=== PATIENT | female | born 1960 | race Asian ===

== ENCOUNTER 2020-09-18 20:41 | Emergency (ER) | payer BC ==
[~2020-09-18] VITALS: Ht 157.5 cm; Wt 59.9 kg
[2020-09-18 20:52] VITALS: Ht 157.5 cm; Wt 59.9 kg
[2020-09-18 22:55] VITALS: BP 127/70
== END 2020-09-18 23:59 | disposition home or self-care (01) ==
LOC: ED 20:41
DX: S06.0X0A Concussion without loss of consciousness, initial encounter (principal); S16.1XXA Strain of muscle, fascia and tendon at neck level, initial encounter; W01.0XXA Fall on same level from slipping, tripping and stumbling without subsequent striking against object, initial encounter; Y93.89 Activity, other specified; Y92.89 Other specified places as the place of occurrence of the external cause; Y99.8 Other external cause status
CPT/HCPCS: Q0162